=== PATIENT | female | born 1990 | race Caucasian/White ===

== ENCOUNTER 2021-04-27 00:39 | Emergency (ER) | payer OTHER | END 2021-04-27 03:22 | disposition left against medical advice (07) | LOC: FER 00:39 | DX: R10.84 Generalized abdominal pain (principal); F17.210 Nicotine dependence, cigarettes, uncomplicated | CPT/HCPCS: 99283 ==

== ENCOUNTER → 2021-07-17 15:10 | Emergency (ER) | payer OTHER | END | disposition left against medical advice (07) | LOC: FER 15:10 | DX: J02.9 Acute pharyngitis, unspecified (principal); H92.01 Otalgia, right ear; Z53.8 Procedure and treatment not carried out for other reasons | CPT/HCPCS: 87880; 99281 ==